=== PATIENT | female | born 1965 | race African-American/Black ===

== ENCOUNTER 2018-10-06 20:49 | Emergency (ER) | payer MEDICAID ==
[~2018-10-06] VITALS: Ht 165.1 cm; Wt 72.0 kg
[2018-10-07] MEDS ORDERED: ACETAMINOPHEN 325MG TABLET PO STA (00:25)
[2018-10-07] MEDS ORDERED: SODIUM CHLORIDE 0.9% 1,000 ML IV ONE (00:25)
[2018-10-07 00:45] LABS: CHLORIDE 106 mEq/L (98-107)
[2018-10-07 00:50] LABS: BASOPHILS % 0.5 % (0.0-2.0); EOSINOPHILS % 0.6 % (0.0-5.0); HEMATOCRIT. 38.1 % (36.0-48.0); HEMOGLOBIN. 12.8 g/dL (12.0-16.0); LYMPHOCYTES % 23.3 % (20.0-50.0); MEAN CORPUSCULAR HEMOGLOBIN 31.3 pg (28.0-32.0); MEAN CORPUSCULAR VOLUME 93.2 fL (81.0-99.0); MEAN PLATELET VOLUME 9.5 fl (7.4-10.4); MONOCYTES % 7.5 % (2.0-8.0); NEUTROPHILS % 68.1 % (40.0-76.0); PLATELET 293 x1000/uL (130-400); RED BLOOD CELL COUNT 4.09 mill/uL (4.2-5.4); RED CELL DISTRIBUTION WIDTH 13.3 % (11.6-14.6)
[2018-10-07 01:15] LABS: CLARITY URINE CLEAR (CLEAR); COLOR URINE YELLOW (YELLOW); KETONES URINE NEGATIVE (NEGATIVE); LEUKOCYTE ESTERASE URINE NEGATIVE (NEGATIVE); NITRITE URINE NEGATIVE (NEGATIVE); OCCULT BLOOD URINE NEGATIVE (NEGATIVE); PH URINE 7.5 (4.5-8.0); PROTEIN URINE NEGATIVE (NEGATIVE); SPECIFIC GRAVITY URINE 1.008 (1.005-1.030); UROBILINOGEN URINE 0.2 E.U./dL (0.2-1.0)
[2018-10-07] MEDS ORDERED: PROCHLORPERAZINE 10MG/2ML VIAL IV ONE (01:45)
[2018-10-07 04:53] VITALS: BP 116/70
== END 2018-10-07 04:57 | disposition home or self-care (01) ==
LOC: ER 20:49
DX: R55 Syncope and collapse (principal); F43.9 Reaction to severe stress, unspecified
CPT/HCPCS: 36415; 70450; 71045; 80053; 81003; 83880; 84484; 85025; 93005; 96361; 96374; 99284; J0780; J7030